=== PATIENT | male | born 1960 | race Caucasian/White ===

== ENCOUNTER → 2020-08-25 | Outpatient (CLI) | payer MEDICARE, OTHER | LOC: KOH-I 10:44 | DX: R10.31 Right lower quadrant pain (principal); R10.32 Left lower quadrant pain; R91.1 Solitary pulmonary nodule | CPT/HCPCS: 74176 ==

== ENCOUNTER → 2020-11-02 | Outpatient (CLI) | payer MEDICARE, OTHER | LOC: CT 08:00 | DX: R91.1 Solitary pulmonary nodule (principal) | CPT/HCPCS: 71250 ==

== ENCOUNTER → 2020-12-06 | Outpatient (CLI) | payer MEDICARE, OTHER | LOC: EXRD 11:00 | DX: M79.641 Pain in right hand (principal); M79.642 Pain in left hand; M54.5 Low back pain; M47.27 Other spondylosis with radiculopathy, lumbosacral region; G95.89 Other specified diseases of spinal cord | CPT/HCPCS: 72110; 73130 ==

== ENCOUNTER → 2021-01-30 | Outpatient (CLI) | payer MEDICARE, OTHER | LOC: NM 07:47 | DX: M54.5 Low back pain (principal); M79.641 Pain in right hand; M79.642 Pain in left hand; M13.0 Polyarthritis, unspecified | CPT/HCPCS: 78306; A9503 ==

== ENCOUNTER → 2021-05-08 | Outpatient (CLI) | payer MEDICARE | LOC: KOH-I 11:20 | DX: R91.1 Solitary pulmonary nodule (principal) | CPT/HCPCS: 71250 ==

== ENCOUNTER → 2021-06-19 | Outpatient (CLI) | payer MEDICARE | LOC: EXRD 10:37 | DX: M79.641 Pain in right hand (principal); M79.642 Pain in left hand | CPT/HCPCS: 73130 ==

== ENCOUNTER → 2021-08-09 | Outpatient (CLI) | payer MEDICARE | LOC: KOH-I 14:21 | DX: N28.1 Cyst of kidney, acquired (principal) | CPT/HCPCS: 76775 ==

== ENCOUNTER → 2022-03-14 | Outpatient (CLI) | payer MEDICARE | LOC: EXRD 09:40 | DX: M54.2 Cervicalgia (principal); M47.812 Spondylosis without myelopathy or radiculopathy, cervical region | CPT/HCPCS: 72050 ==

== ENCOUNTER → 2022-04-03 | Outpatient (CLI) | payer MEDICARE | LOC: KOH-I 10:00 | DX: M50.30 Other cervical disc degeneration, unspecified cervical region (principal); G89.29 Other chronic pain | CPT/HCPCS: 72125 ==

== ENCOUNTER → 2022-05-11 | Outpatient (CLI) | payer MEDICARE | LOC: KOH-I 08:00 | DX: R91.1 Solitary pulmonary nodule (principal); N28.1 Cyst of kidney, acquired | CPT/HCPCS: 71250 ==